=== PATIENT | female | born 1975 | race Hispanic/Latino ===

== ENCOUNTER 2019-08-27 08:43 | Emergency (ER) | payer SELFPAY ==
--- NOTE | 2019-08-27 11:20 | Emergency Department Report ---
ED General Adult HPI - General Chief complaint: Nausea/Vomiting/Diarrhea Stated complaint: N/V Time Seen by Provider: 08/27/19 11:07 Source: patient, family, EMS ( EMS documentation not available at time of chart dictation ), RN notes reviewed, old records reviewed Mode of arrival: Ambulatory Limitations: No Limitations - History of Present Illness Initial comments: Patient is a 44-year-old female. The patient is not known to myself previously. She follows with a Dr. Steinberg. Her past medical history includes bipolar disorder, use of marijuana, history of -induced cardiomyopathy, vaginal delivery x3. She presents to the ER with a complaint of painless nausea and vomiting, too many times to count, started at around 6:00 in the morning, chest wall burning, pain with deep inspiration, bilateral upper extremity cramping, tingling on her fingertips, and resolved bilateral lower extremity cramping. She denies any DVT and pulmonary embolism risk factors. Her chest wall pain is aching and throbbing, present intermittently, and does not radiate anywhere. She indicates that she does not smoke cigarettes, or use recreational drugs. According to a family member who confided in me later, the patient does use electronic vaping devices There is no complaint of headache, neck pain, irritative or obstructive urinary symptoms, focal extremity weakness and/or numbness. Her main complaint is diffuse unopposed nausea and vomiting, and subsequent chest discomfort. -: Gradual, hour(s) Consistency: intermittent Improves with: rest Worsens with: eating - Related Data Previous Rx's Medication Instructions Recorded Last Taken Type Ciprofloxacin HCl [Ciprofloxacin 500 mg PO Q12HR #14 tab 08/27/19 Unknown Rx TAB] Ondansetron [Zofran Odt] 4 mg PO Q8HR PRN #20 tab.rapdis 08/27/19 Unknown Rx metroNIDAZOLE [Flagyl] 500 mg PO Q8HR #21 tablet 08/27/19 Unknown Rx Allergies Allergy/AdvReac Type Severity Reaction Status Date / Time codeine Allergy Rash Verified 08/27/19 08:52 ED Review of Systems ROS: Stated complaint: N/V Other details as noted in HPI Constitutional: malaise. denies: fever Eyes: denies: eye discharge ENT: denies: congestion Respiratory: denies: wheezing Cardiovascular: chest pain Gastrointestinal: nausea, vomiting. denies: diarrhea, constipation, hematemesis, melena, hematochezia Genitourinary: denies: dysuria Musculoskeletal: arthralgia, myalgia Skin: denies: lesions Neurological: weakness. denies: paresthesias, confusion Psychiatric: anxiety Hematological/Lymphatic: denies: easy bleeding ED Past Medical Hx - Past Medical History Hx Hypertension: Yes Hx Seizures: Yes Hx Psychiatric Treatment: Yes (bipolar) Additional medical history: thyroid - Surgical History Additional Surgical History: left ankle surgery. right femur. right eye orbit - Social History Smoking Status: Current Every Day Smoker Substance Use Type: None - Medications Home Medications: Home Medications Medication Instructions Recorded Confirmed Last Taken Type Ciprofloxacin HCl [Ciprofloxacin 500 mg PO Q12HR #14 tab 08/27/19 Unknown Rx TAB] Ondansetron [Zofran Odt] 4 mg PO Q8HR PRN #20 tab.rapdis 08/27/19 Unknown Rx metroNIDAZOLE [Flagyl] 500 mg PO Q8HR #21 tablet 08/27/19 Unknown Rx ED Physical Exam - General Limitations: No Limitations General appearance: alert, anxious, in distress, obese - Head Head exam: Present: atraumatic, normocephalic - Eye Eye exam: Present: normal appearance, PERRL, EOMI, other (Visual acuity intact to finger counting and color perception at a close distance). Absent: nystagmus - ENT ENT exam: Present: normal exam, normal orophraynx, mucous membranes moist, normal external ear exam - Neck Neck exam: Present: normal inspection, full ROM. Absent: tenderness, meningismus - Respiratory Respiratory exam: Present: normal lung sounds bilaterally. Absent: respiratory distress - Cardiovascular Cardiovascular Exam: Present: normal rhythm, tachycardia, normal heart sounds. Absent: systolic murmur, diastolic murmur, rubs, gallop - GI/Abdominal GI/Abdominal exam: Present: soft. Absent: distended, tenderness, guarding, rebound, rigid, pulsatile mass - Extremities Exam Extremities exam: Present: normal inspection, full ROM, other (2+ pulses noted in the bilateral upper and lower extremities. There is no palpable cord. negative Homans sign. Muscular compartments are soft. The pelvis is stable.). Absent: pedal edema, calf tenderness - Back Exam Back exam: Present: normal inspection, full ROM. Absent: tenderness, CVA tenderness (R), CVA tenderness (L), paraspinal tenderness, vertebral tenderness - Neurological Exam Neurological exam: Present: alert, oriented X3, other (There is no facial droop. The tongue is midline. Extraocular movements are intact bilaterally. There is 5 out of 5 strength in bilateral upper and lower extremities. Sensation is intact to light touch bilateral upper and lower extremities. There is no past- pointing. ). Absent: motor sensory deficit - Psychiatric Psychiatric exam: Present: anxious - Skin Skin exam: Present: warm, dry, intact, normal color. Absent: rash ED Course Vital Signs 08/27/19 08/27/19 08:51 14:37 Temperature 97.6 F Pulse Rate 110 H 64 Respiratory 18 16 Rate Blood Pressure 155/103 Blood Pressure 144/83 [Right] O2 Sat by Pulse 97 100 Oximetry - Reevaluation(s) Reevaluation #1: 08/27/19 11:20 [facility] aware Filled ID Written Drug QTY Days Prescriber Rx # Pharmacy * Refills Daily Dose Pymt Type MANAGER GENERATION 06/03/2019 1 03/04/2019 CLONAZEPAM 0.5 MG TABLET 45.0 45 MA MAT [id number] [facility] ([id number]) 1 Private Pay [place] 04/22/2019 1 03/04/2019 CLONAZEPAM 0.5 MG TABLET 45.0 45 MA MAT [id number] [facility] ([id number]) 0 [facility] [place] 04/14/2019 1 04/14/2019 ACETAMINOPHEN-COD #3 TABLET 12.0 2 [facility] [id number] [facility] ([id number]) 0 27.0 [facility] Private Pay [place] 03/19/2019 1 03/18/2019 HYDROCODONE-ACETAMIN 7.5-325 10.0 2 [facility] [id number] [facility] ([id number]) 0 37.5 [facility]ME Private Pay [place] 03/05/2019 1 03/04/2019 CLONAZEPAM 0.5 MG TABLET 45.0 45 MA MAT [id number] [facility] ([id number]) 0 Private Pay [place] 12/30/2018 1 12/30/2018 CLONAZEPAM 0.5 MG TABLET 60.0 30 [place] MAT [id number] [facility] ([id number]) 0 Reevaluation #2: 08/27/19 12:01 Differential diagnosis, including but not limited to: Colitis, diverticulitis, obstruction, urinary tract infection, cyclic vomiting syndrome, enteritis, narcotic bowel syndrome, appendicitis, cannabinoid hyperemesis syndrome, GERD, gastritis, hiatal hernia, acute coronary syndrome, pulmonary embolism Assessment and plan: 44-year-old female with complaint of abdominal pain, nausea and vomiting, chest pain, and discomfort with inspiration. Tachycardia is resolved. EKG shows nonspecific findings, QTC 559 ms. No recent aspirin consumption, patient at low risk for major adverse cardiac event, as per heart score, assuming negative troponin, does not have significant family history for coronary artery disease. Leukocytosis is reviewed and appreciated. Uncertain if this is a stress reaction, v secondary to acute event. We will treat her symptoms, obtain screening laboratory studies, x-ray the chest abdomen pelvis, urinalysis, EKG x2, troponin x2, and we will reassess. Reevaluation #3: 08/27/19 14:10 cta chest negative Reevaluation #4: 08/27/19 14:34 CT scan abdomen pelvis shows transverse and descending colitis. She meets systemic inflammatory response syndrome criteria, and is therefore loaded with antibiotics, blood cultures and lactic acid will be ordered. She continues intractable nausea and vomiting and has now received 3 rounds of antiemetic medication. She meets criteria for admission. I discussed laboratory findings and CT scan findings with the patient who verbalized understanding. She is amenable to hospitalization at this time. Hospital physician is paged to arrange admission. Reevaluation #5: 08/27/19 14:41 Dr Mary Toney to admit ED Medical Decision Making - Lab Data Result diagrams: 08/27/19 15:40 08/27/19 11:36 Vital Signs 08/27/19 08:51 Temperature 97.6 F Pulse Rate 110 H Respiratory 18 Rate Blood Pressure 155/103 O2 Sat by Pulse 97 Oximetry Lab Results 08/27/19 Range/Units 11:36 WBC 25.6 H (4.5-11.0) K/mm3 RBC 6.04 H (3.65-5.03) M/mm3 Hgb 17.2 H (10.1-14.3) gm/dl Hct 51.3 H (30.3-42.9) % MCV 85 (79-97) fl MCH 29 (28-32) pg MCHC 34 (30-34) % RDW 13.8 (13.2-15.2) % Plt Count 539 H (140-440) K/mm3 - EKG Data -: EKG Interpreted by Oh EKG shows normal: sinus rhythm Rate: normal - EKG Data When compared to previous EKG there are: previous EKG unavailable 08/27/19 12:03 Sinus rhythm, 65 bpm, normal axis, QTC 559 ms, low voltage. There is no prior for comparison, there is motion artifact. Not consistent with STEMI. - Radiology Data Radiology results: pending, report reviewed, image reviewed Print Report Referring Physician: NOÉ LOPEZ Patient Name: OPHELIA CHENEY Date of : 1975 Sex: Female Report Date: 2019-08-27 Report Status: Finalized Findings [address] [address] XRay Report Signed Patient: OPHELIA CHENEY MR #: [id number] : 1975 Acct:[id number] Age/Sex: 44 / F ADM Date: 08/27/19 Loc: ED Attending Dr: Ordering Physician: NOÉ LOPEZ MD Date of Service: 08/27/19 Procedure(s): XR abd series w cxr 1V Accession Number(s): [id number] cc: NOÉ LOPEZ MD Fluoro Time In Minutes: ABDOMINAL SERIES WITH CHEST X-RAY ONE VIEW HISTORY: Chest pain, abdominal pain COMPARISON: None. FINDINGS: Single view of the chest is within normal limits. Supine and upright views the abdomen demonstrate an unremarkable bowel gas pattern. No mass, fluid levels, free air, dilated bowel or pathologic calcifications are identified. IMPRESSION: Normal exam. Signer Name: Esa Carroll Jr, MD Signed: 08/27/2019 12:43 PM Workstation Name: [id number] Transcribed By: TTR Dictated By: ESA CARROLL JR, MD Electronically Authenticated By: ESA CARROLL JR, MD Signed Date/Time: 08/27/19 1243 Print Report Referring Physician: NOÉ LOPEZ Patient Name: OPHELIA CHENEY Date of : 1975 Sex: Female Report Date: 2019-08-27 Report Status: Finalized Findings [address] [address] Cat Scan Report Signed Patient: OPHELIA CHENEY MR #: [id number] : 1975 Acct:[id number] Age/Sex: 44 / F ADM Date: 08/27/19 Loc: ED Attending Dr: Ordering Physician: NOÉ LOPEZ MD Date of Service: 08/27/19 Procedure(s): CT abdomen pelvis w con Accession Number(s): [id number] cc: NOÉ LOPEZ MD CT ABDOMEN AND PELVIS WITH CONTRAST HISTORY: Nausea and vomiting. COMPARISON: None TECHNIQUE: Routine abdominal and pelvic CT exam performed following intravenous contrast administration.. 100 cc of Omnipaque 300 was injected intravenously without incident. Consent was obtained prior to the administration of contrast. All CT scans at this location are performed using CT dose reduction for ALARA by means of automated exposure control. FINDINGS: CT ABDOMEN: Lung Bases: No significant abnormality. Liver: No significant abnormality. Biliary: Normal gallbladder and bile ducts. Stomach: Normal. Spleen: No significant abnormality. Unenlarged. Pancreas: No significant abnormality. Adrenals: No significant abnormality. Kidneys: No significant abnormality. Lymphatics: No lymphadenopathy. Vasculature: No significant abnormality. Bowel/Peritoneum: The small bowel is normal. Mild circumferential wall thickening (5 mm) of the transverse colon. The wall thickening extends to involve the splenic flexure of the colon. No bowel wall pneumatosis. No free air or ascites. The rest of the colon is normal. Normal appendix. CT PELVIC: : Normal uterus and ovaries. A dominant 2 cm follicle of the left ovary. No adnexal mass or free fluid. Lymphatics: No lymphadenopathy. Osseous Structures: No aggressive appearing osseous lesions. Additional Findings: None IMPRESSION: 1. Mild wall thickening of the transverse colon and the splenic flexure of the colon is consistent with a mild acute colitis. 2. The abdomen and pelvis are otherwise normal. Signer Name: Mrina Belcher MD Signed: 08/27/2019 2:20 PM Workstation Name: [id number] Transcribed By: REF Dictated By: MIRNA BELCHER MD Electronically Authenticated By: MIRNA BELCHER MD Signed Date/Time: 08/27/19 0637 Critical care attestation.: If time is entered above; I have spent that time in minutes in the direct care of this critically ill patient, excluding procedure time. ED Disposition Clinical Impression: SIRS (systemic inflammatory response syndrome), Colitis, Intractable nausea and vomiting, Acute dehydration Disposition: -09 OP ADMIT IP TO THIS HOSP Is pt being admited?: Yes Does the pt Need Aspirin: No Condition: Good Prescriptions: Ciprofloxacin HCl [Ciprofloxacin TAB] 500 mg PO Q12HR #14 tab metroNIDAZOLE [Flagyl] 500 mg PO Q8HR #21 tablet Ondansetron [Zofran Odt] 4 mg PO Q8HR PRN #20 tab.rapdis PRN Reason: Nausea Referrals: PRIMARY CARE, [Primary Care Provider] - 3-5 Days
[2019-08-27] MEDS ORDERED: SODIUM CHLORIDE 0.9% 1000 ML 1,000 ML IV ONE (11:28)
[2019-08-27] MEDS ORDERED: FAMOTIDINE 20 MG/2 ML INJ IV ONE (11:28)
[2019-08-27] MEDS ORDERED: ONDANSETRON 4 MG/2 ML INJ IV ONE (11:28)
[2019-08-27] MEDS ORDERED: SODIUM CHLORIDE 0.9% 1000 ML 2,000 ML IV ONE (11:28)
[2019-08-27 11:48] LABS: Hematocrit 51.3 % (30.3-42.9); Hemoglobin 17.2 gm/dl (10.1-14.3); Mean Corpuscular HGB Conc 34 % (30-34); Mean Corpuscular Volume 85 fl (79-97); Platelet Count 539 K/mm3 (140-440); Red Blood Count 6.04 M/mm3 (3.65-5.03); Red Cell Distribution Width 13.8 % (13.2-15.2)
[2019-08-27 12:05] LABS: INR 1.06 (0.87-1.13)
[2019-08-27 12:15] LABS: Albumin 4.2 g/dL (3.9-5); BUN/Creatinine Ratio 21; Blood Urea Nitrogen 17 mg/dL (7-17); Calcium 9.8 mg/dL (8.4-10.2); Hemolysis Index 316
[2019-08-27] MEDS ORDERED: SUCRALFATE 1 GM/10 ML ORAL LIQD PO ONE (12:36)
[2019-08-27] MEDS ORDERED: METOCLOPRAMIDE 10 MG/2 ML INJ IV ONE (12:42)
--- NOTE | 2019-08-27 12:47 | XRay Report ---
ABDOMINAL SERIES WITH CHEST X-RAY ONE VIEW HISTORY: Chest pain, abdominal pain COMPARISON: None. FINDINGS: Single view of the chest is within normal limits. Supine and upright views the abdomen demo nstrate an unremarkable bowel gas pattern. No mass, fluid levels, free air, dilated bowel or patholog ic calcifications are identified. IMPRESSION: Normal exam. Signer Name: Esa Carroll Jr, MD Signed: 08/27/2019 12:43 PM Workstation Name: [id number]
[2019-08-27 12:55] LABS: Alanine Aminotransferase 20 units/L (7-56)
[2019-08-27 13:44] LABS: Bacteria,Urine 3+ /HPF (Negative); Bilirubin,Urine NEG (Negative); Blood,Urine NEG (Negative); Color,Urine Yellow (Yellow); Hyaline Casts,Urine 3 /LPF; Mucus,Urine FEW /HPF; Urobilinogen,Urine < 2.0 mg/dL (<2.0)
--- NOTE | 2019-08-27 13:57 | Cat Scan Report ---
CTA CHEST WITH CONTRAST INDICATION : Pleuritic chest pain, tachycardia. TECHNIQUE: Axial imaging performed through the chest, with contrast bolus timing set to maximize opa cification of the pulmonary arteries. Sagittal and coronal reformatted images. 3-plane MIP reformatte d images were obtained. All CT scans at this location are performed using CT dose reduction for ALAR A by means of automated exposure control. 100 mL of intravenous contrast administered. COMPARISON: None FINDINGS: Bolus: Contrast bolus timing is adequate. PTE: No filling defect is present to suggest PTE. Mediastinum: Heart and great vessels appear normal. No pathologic mediastinal adenopathy. Lungs: Lungs are clear. Bones: Degenerative changes in the spine with nothing acute. Upper abdomen: Limited imaging of the upper abdomen shows nothing acute. IMPRESSION: Negative for PTE. Clear lungs. Signer Name: Esa Carroll Jr, MD Signed: 08/27/2019 1:53 PM Workstation Name: [id number]
[2019-08-27] MEDS ORDERED: HALOPERIDOL LACTATE 5 MG/1 ML INJ IM ONE (14:14)
--- NOTE | 2019-08-27 14:25 | Cat Scan Report ---
CT ABDOMEN AND PELVIS WITH CONTRAST HISTORY: Nausea and vomiting. COMPARISON: None TECHNIQUE: Routine abdominal and pelvic CT exam performed following intravenous contrast administrat ion.. 100 cc of Omnipaque 300 was injected intravenously without incident. Consent was obtained prior to the administration of contrast. All CT scans at this location are performed using CT dose reducti on for ALARA by means of automated exposure control. FINDINGS: CT ABDOMEN: Lung Bases: No significant abnormality. Liver: No significant abnormality. Biliary: Normal gallbladder and bile ducts. Stomach: Normal. Spleen: No significant abnormality. Unenlarged. Pancreas: No significant abnormality. Adrenals: No significant abnormality. Kidneys: No significant abnormality. Lymphatics: No lymphadenopathy. Vasculature: No significant abnormality. Bowel/Peritoneum: The small bowel is normal. Mild circumferential wall thickening (5 mm) of the trans verse colon. The wall thickening extends to involve the splenic flexure of the colon. No bowel wall p neumatosis. No free air or ascites. The rest of the colon is normal. Normal appendix. CT PELVIC: : Normal uterus and ovaries. A dominant 2 cm follicle of the left ovary. No adnexal mass or free fl uid. Lymphatics: No lymphadenopathy. Osseous Structures: No aggressive appearing osseous lesions. Additional Findings: None IMPRESSION: 1. Mild wall thickening of the transverse colon and the splenic flexure of the colon is consistent wi th a mild acute colitis. 2. The abdomen and pelvis are otherwise normal. Signer Name: Stephan Briceño MD Signed: 08/27/2019 2:20 PM Workstation Name: [id number]
[2019-08-27] MEDS ORDERED: metroNIDAZOLE/NS 500 MG/100 ML 500 MG/100 ML BAG IV ONE (14:29)
[2019-08-27 14:38] VITALS: BP 144/83
[2019-08-27] MEDS ORDERED: LORazepam 2 MG/ML VIAL IV ONE (15:59)
[2019-08-27 16:04] LABS: Hematocrit 45.5 % (30.3-42.9); Hemoglobin 15.4 gm/dl (10.1-14.3); Mean Corpuscular HGB Conc 34 % (30-34); Mean Corpuscular Volume 85 fl (79-97); Platelet Count 400 K/mm3 (140-440); Red Blood Count 5.37 M/mm3 (3.65-5.03); Red Cell Distribution Width 14.1 % (13.2-15.2)
[2019-08-27] MEDS ORDERED: LORazepam 2 MG/ML VIAL ONE (16:12)
[2019-08-27 17:53] LABS: Basophils % (Manual) 0 % (0.0-1.8); Eosinophils % (Manual) 0 % (0.0-4.3); Total Cells Counted 100
[2019-08-27 17:54] LABS: Anisocytosis 1+; Large Platelets 1+; Platelet Estimate Consistent w Auto
--- NOTE | 2019-08-27 17:55 | Event Note ---
Date: 08/27/19 44 YO Female presents to ED for evaluation of nausea and vomiting. Patient found to have gastroenteritis. Patient treated with IV antibiotic therapy and IV fluid resuscitation therapy with improvement in symptoms. Patient is medically optimized and back to usual state of health and tolerating oral and liquid diet. Patient discharged home instructed to follow-up with primary care physician within 3 to 5 days and to follow-up with GI PRN for further care. ED Physical Exam - General Limitations: No Limitations General appearance: alert, anxious, in distress, obese - Head Head exam: Present: atraumatic, normocephalic - Eye Eye exam: Present: normal appearance, PERRL, EOMI, other (Visual acuity intact to finger counting and color perception at a close distance). Absent: nystagmus - ENT ENT exam: Present: normal exam, normal orophraynx, mucous membranes moist, normal external ear exam - Neck Neck exam: Present: normal inspection, full ROM. Absent: tenderness, meningismus - Respiratory Respiratory exam: Present: normal lung sounds bilaterally. Absent: respiratory distress - Cardiovascular Cardiovascular Exam: Present: normal rhythm, tachycardia, normal heart sounds. Absent: systolic murmur, diastolic murmur, rubs, gallop - GI/Abdominal GI/Abdominal exam: Present: soft. Absent: distended, tenderness, guarding, rebound, rigid, pulsatile mass - Extremities Exam Extremities exam: Present: normal inspection, full ROM, other (2+ pulses noted in the bilateral upper and lower extremities. There is no palpable cord. nega tive Homans sign. Muscular compartments are soft. The pelvis is stable.). Absent: pedal edema, calf tenderness - Back Exam Back exam: Present: normal inspection, full ROM. Absent: tenderness, CVA tenderness (R), CVA tenderness (L), paraspinal tenderness, vertebral tenderness - Neurological Exam Neurological exam: Present: alert, oriented X3, other (There is no facial droop. The tongue is midline. Extraocular movements are intact bilaterally. There is 5 out of 5 strength in bilateral upper and lower extremities. Sensation is intact to light touch bilateral upper and lower extremities. There is no past- pointing. ). Absent: motor sensory deficit - Psychiatric Psychiatric exam: Present: anxious - Skin Skin exam: Present: warm, dry, intact, normal color. Absent: rash
== END 2019-08-27 19:30 | disposition admitted as inpatient to this hospital (09) ==
LOC: ED 08:43
DX: K52.9 Noninfective gastroenteritis and colitis, unspecified (principal); E86.0 Dehydration; R65.10 Systemic inflammatory response syndrome (SIRS) of non-infectious origin without acute organ dysfunction; R11.2 Nausea with vomiting, unspecified; F31.9 Bipolar disorder, unspecified; I10 Essential (primary) hypertension; F12.90 Cannabis use, unspecified, uncomplicated; F17.200 Nicotine dependence, unspecified, uncomplicated; Z86.69 Personal history of other diseases of the nervous system and sense organs; Z98.890 Other specified postprocedural states; Z88.6 Allergy status to analgesic agent; Z79.899 Other long term (current) drug therapy
CPT/HCPCS: 36415; 71275; 74022; 74177; 80053; 81001; 82140; 82550; 83735; 84443; 84484; 84702; 85007; 85025; 85027; 85379; 85610; 87040; 93005; 93010; 96361; 96365; 96366; 96372; 96375; 99285; J1630; J1956; J2060; J2405; J2765; J7030; Q9967

== ENCOUNTER 2019-08-29 06:50 | Emergency (ER) | payer SELFPAY ==
[2019-08-29] MEDS ORDERED: MORPHINE 2 MG/1 ML INJ IV ONE (07:09)
[2019-08-29] MEDS ORDERED: ONDANSETRON 4 MG/2 ML INJ IV ONE (07:09)
[2019-08-29] MEDS ORDERED: SODIUM CHLORIDE 0.9% 1000 ML 1,000 ML IV ONE (07:09)
--- NOTE | 2019-08-29 07:20 | Emergency Department Report ---
ED Abdominal Pain HPI - General Chief Complaint: Abdominal Pain Stated Complaint: ABD PAIN,N/V Time Seen by Provider: 08/29/19 07:03 Source: patient Mode of arrival: Ambulatory Limitations: No Limitations - History of Present Illness Initial Comments: This is a 44-year-old female that was seen in the emergency department approximately 2 days ago. She had a CT at that time with suggested colitis. She states that she has not been able to eat secondary to vomiting. She admitted and or the family advised that she used marijuana on previous visit. She reports intermittent right upper quadrant pain which is sometimes feels posteriorly and is dull in nature. She was found to have hyperglycemia and leukocytosis on her previous work-up. She was referred to the hospitalist who felt she was appropriate for outpatient management. Patient gives no prior history of gallbladder disease. She has had no prior abdominal surgery. MD Complaint: abdominal pain -: Gradual, days(s) Location: RUQ Radiation: back Migration to: no migration Severity: moderate Quality: dull Consistency: intermittent Worsens With: eating Associated Symptoms: nausea, vomiting. denies: fever, chills, constipation, dysuria, hematemesis, hematochezia Treatments Prior to Arrival: other (Prescribed antibiotic) - Related Data Previous Rx's Medication Instructions Recorded Last Taken Type Ciprofloxacin HCl [Ciprofloxacin 500 mg PO Q12HR #14 tab 08/27/19 Unknown Rx TAB] Ondansetron [Zofran Odt] 4 mg PO Q8HR PRN #20 tab.rapdis 08/27/19 Unknown Rx metroNIDAZOLE [Flagyl] 500 mg PO Q8HR #21 tablet 08/27/19 Unknown Rx Allergies Allergy/AdvReac Type Severity Reaction Status Date / Time codeine Allergy Rash Verified 08/27/19 08:52 ED Review of Systems ROS: Stated complaint: ABD PAIN,N/V Other details as noted in HPI Constitutional: denies: chills, fever Eyes: denies: eye pain, eye discharge, vision change ENT: denies: ear pain, throat pain Respiratory: denies: cough, shortness of breath, wheezing Cardiovascular: denies: chest pain, palpitations Endocrine: no symptoms reported Gastrointestinal: abdominal pain, nausea, vomiting. denies: diarrhea Genitourinary: denies: urgency, dysuria, discharge Musculoskeletal: denies: back pain, joint swelling, arthralgia Skin: denies: rash, lesions Neurological: denies: headache, weakness, paresthesias Psychiatric: denies: anxiety, depression Hematological/Lymphatic: denies: easy bleeding, easy bruising ED Past Medical Hx - Past Medical History Previous Medical History?: Yes Hx Hypertension: Yes Hx Seizures: Yes Hx Psychiatric Treatment: Yes (bipolar) Additional medical history: thyroid - Surgical History Past Surgical History?: Yes Additional Surgical History: left ankle surgery. right femur. right eye orbit - Social History Smoking Status: Current Every Day Smoker Substance Use Type: Marijuana - Medications Home Medications: Home Medications Medication Instructions Recorded Confirmed Last Taken Type Ciprofloxacin HCl [Ciprofloxacin 500 mg PO Q12HR #14 tab 08/27/19 Unknown Rx TAB] Ondansetron [Zofran Odt] 4 mg PO Q8HR PRN #20 tab.rapdis 08/27/19 Unknown Rx metroNIDAZOLE [Flagyl] 500 mg PO Q8HR #21 tablet 08/27/19 Unknown Rx ED Physical Exam - General Limitations: No Limitations General appearance: alert, in no apparent distress - Head Head exam: Present: atraumatic, normocephalic - Eye Eye exam: Present: normal appearance - ENT ENT exam: Present: mucous membranes moist - Neck Neck exam: Present: normal inspection. Absent: tenderness, meningismus - Respiratory Respiratory exam: Present: normal lung sounds bilaterally. Absent: respiratory distress - Cardiovascular Cardiovascular Exam: Present: regular rate, normal rhythm. Absent: systolic murmur, diastolic murmur, rubs, gallop - GI/Abdominal GI/Abdominal exam: Present: soft, tenderness (Discomfort right upper quadrant), normal bowel sounds. Absent: distended, guarding, rebound, rigid, organomegaly, mass, bruit, pulsatile mass, hernia - Extremities Exam Extremities exam: Present: normal inspection - Back Exam Back exam: Present: normal inspection - Neurological Exam Neurological exam: Present: alert, oriented X3, CN II-XII intact. Absent: motor sensory deficit - Psychiatric Psychiatric exam: Present: normal affect, normal mood - Skin Skin exam: Present: warm, dry, intact, normal color. Absent: rash ED Course Vital Signs 08/29/19 08/29/19 06:56 07:53 Temperature 97.8 F 97.8 F Pulse Rate 62 62 Respiratory 18 18 Rate Blood Pressure 153/99 Blood Pressure 153/99 [Left] O2 Sat by Pulse 100 100 Oximetry - Reevaluation(s) Reevaluation #1: Patient's white count has improved. Her symptoms have essentially resolved in the emergency department she looks well. Her abdominal exam is benign. Her gallbladder ultrasound showed sludge but no evidence of acute cholecystitis. I do not think she has biliary colic either. She is advised to follow-up with [facility] and to take the antibiotics previously prescribed. They were Cipro and metronidazole. She did not take these yet at all. She is given return criteria. She is no longer nauseated. She was also referred to [facility]. 08/29/19 09:42 08/29/19 09:43 ED Medical Decision Making - Lab Data Result diagrams: 08/29/19 07:08 08/29/19 Unknown Laboratory Results - last 24 hr 08/29/19 08/29/19 08/29/19 07:08 Unknown Unknown WBC 15.2 H RBC 5.52 H Hgb 16.0 H Hct 46.9 H MCV 85 MCH 29 MCHC 34 RDW 14.1 Plt Count 423 Lymph % (Auto) 10.2 L Spink % (Auto) 4.5 Eos % (Auto) 0.2 Baso % (Auto) 0.3 Lymph # 1.6 Spink # 0.7 Eos # 0.0 Baso # 0.1 Seg Neutrophils % 84.8 H Seg Neutrophils # 12.9 H Sodium 138 Potassium 3.9 Chloride 99.1 Carbon Dioxide 21 L Anion Gap 22 BUN 11 Creatinine 0.8 Estimated GFR > 60 BUN/Creatinine Ratio 14 Glucose 173 H Calcium 9.9 Total Bilirubin 0.90 Direct Bilirubin < 0.2 Indirect Bilirubin 0.7 AST 40 ALT 31 Alkaline Phosphatase 85 Total Protein 7.1 Albumin 4.2 Albumin/Globulin Ratio 1.4 Lipase 21 Urine Color Yellow Urine Turbidity Turbid Urine pH 6.0 Ur Specific [place] 1.019 Urine Protein 30 mg/dl Urine Glucose (UA) Neg Urine Ketones 20 Urine Blood Neg Urine Nitrite Neg Urine Bilirubin Neg Urine Urobilinogen 4.0 Ur Leukocyte Esterase Neg Urine WBC (Auto) < 1.0 Urine RBC (Auto) < 1.0 U Epithel Cells (Auto) 3.0 Amorphous Crystals 3+ Urine Mucus 3+ - Radiology Data Radiology results: report reviewed FINDINGS: Pancreas: Visualized portion shows no significant abnormality. Liver: Increased echogenicity is present within the liver. Gallbladder: No evidence of cholelithiasis. Sludge is noted. Bile ducts: Normal. Common Bile Duct measures 3 mm. Free fluid: None. Additional Findings: None. IMPRESSION: 1. Diffuse liver disease most in keeping with diffuse fatty infiltration 2. Sludge within the gallbladder Critical care attestation.: If time is entered above; I have spent that time in minutes in the direct care of this critically ill patient, excluding procedure time. ED Disposition Clinical Impression: Colitis Abdominal pain Qualifiers: Abdominal location: right upper quadrant Qualified Code(s): R10.11 - Right upper quadrant pain Disposition: TO HOME OR SELFCARE Is pt being admited?: No Does the pt Need Aspirin: No Condition: Stable Instructions: Abdominal Pain (ED), Infectious Colitis (ED) Additional Instructions: Return to the emergency department any significant pain or vomiting. Return for fever. Return any acute change. Take medicine as previously prescribed. You may take [id number] medicine for heartburn as needed. I have referred you to a GI specialist. See your doctor at [facility] on Saturday. Referrals: BRAXTON MONTERO MD [Primary Care Provider] - 3-5 Days [facility] [Provider Group] - 3-5 Days [facility] [Provider Group] - 2-3 Days Time of Disposition: 09:44
[2019-08-29 07:33] LABS: Amorphous Crystals,Urine 3+; Bilirubin,Urine NEG (Negative); Blood,Urine NEG (Negative); Color,Urine Yellow (Yellow); Mucus,Urine 3+ /HPF
[2019-08-29 07:36] LABS: RBC,Urine < 1.0 /HPF (0.0-6.0); WBC,Urine < 1.0 /HPF (0.0-6.0)
[2019-08-29 07:41] LABS: Basophils # (Auto) 0.1 K/mm3 (0.0-0.1); Eosinophils % (Auto) 0.2 % (0.0-4.3); Hematocrit 46.9 % (30.3-42.9); Mean Corpuscular HGB Conc 34 % (30-34); Mean Corpuscular Volume 85 fl (79-97); Monocytes # (Auto) 0.7 K/mm3 (0.0-0.8); Monocytes % (Auto) 4.5 % (0.0-7.3); Platelet Count 423 K/mm3 (140-440); Red Blood Count 5.52 M/mm3 (3.65-5.03); Red Cell Distribution Width 14.1 % (13.2-15.2)
[2019-08-29 07:43] LABS: Basophils % (Auto) 0.3 % (0.0-1.8); Lymphocytes # (Auto) 1.6 K/mm3 (1.2-5.4); Lymphocytes % (Auto) 10.2 % (13.4-35.0)
[2019-08-29 07:49] LABS: Albumin 4.2 g/dL (3.9-5); BUN/Creatinine Ratio 14; Blood Urea Nitrogen 11 mg/dL (7-17); Calcium 9.9 mg/dL (8.4-10.2); Hemolysis Index 91
--- NOTE | 2019-08-29 08:11 | Ultrasound Report ---
ULTRASOUND ABDOMEN, LIMITED (RIGHT UPPER QUADRANT) INDICATION: RUQ pain recent CT. COMPARISON: None available. FINDINGS: Pancreas: Visualized portion shows no significant abnormality. Liver: Increased echogenicity is present within the liver. Gallbladder: No evidence of cholelithiasis. Sludge is noted. Bile ducts: Normal. Common Bile Duct measures 3 mm. Free fluid: None. Additional Findings: None. IMPRESSION: 1. Diffuse liver disease most in keeping with diffuse fatty infiltration 2. Sludge within the gallbladder Signer Name: Bigg Lam MD Signed: 08/29/2019 8:07 AM Workstation Name: [id number]
[2019-08-29 08:24] LABS: Alanine Aminotransferase 31 units/L (7-56); Bilirubin,Direct < 0.2 mg/dL (0-0.2)
[2019-08-29] MEDS ORDERED: PANTOPRAZOLE 40 MG INJ IV ONE (08:53)
[2019-08-29 10:39] VITALS: BP 146/82
== END 2019-08-29 10:39 | disposition home or self-care (01) ==
LOC: ED 06:50
DX: K52.9 Noninfective gastroenteritis and colitis, unspecified (principal); I10 Essential (primary) hypertension; F17.200 Nicotine dependence, unspecified, uncomplicated; F12.10 Cannabis abuse, uncomplicated; Z79.899 Other long term (current) drug therapy; Z88.5 Allergy status to narcotic agent
CPT/HCPCS: 36415; 76705; 80048; 80076; 81001; 83690; 85025; 96361; 96374; 96375; 99284; C9113; J2270; J2405; J7030